=== PATIENT | male | born 1960 | race Caucasian/White ===

== ENCOUNTER 2021-10-01 16:46 | Emergency (ER) | payer BC, MEDICAID, OTHER ==
[2021-10-01] MEDS ORDERED: Sodium Chloride 0.9% 10 ML Syringe FLUSH PRN (17:26)
[2021-10-01] MEDS ORDERED: Sodium Chloride 0.9% 1,000 ML IV ONE (17:31)
[2021-10-01] MEDS ORDERED: Loperamide 2 MG Cap PO ONE (17:31)
[2021-10-01] MEDS ORDERED: Ondansetron 4 MG/2 ML SDV IVPUSH ONE (17:31)
--- NOTE | 2021-10-01 17:37 | EDM.PDOC ---
ED HPI GENERAL MEDICAL PROBLEM - General Chief Complaint: Gastrointestinal Problem Stated Complaint: WEAK,LOSS OF APPETITE Time Seen by Provider: 10/01/21 17:05 Source of Information: Reports: Patient, RN Notes Reviewed History Limitations: Reports: No Limitations - History of Present Illness INITIAL COMMENTS - FREE TEXT/NARRATIVE: Patient is a 61-year-old male who presents to the ER for the evaluation of his nausea/vomiting/diarrhea. States that this has been present since about Friday afternoon. Notes he has had multiple bouts of watery diarrhea since then, along with some nausea and vomiting. States he tried some Pedialyte yesterday but this did not sit well with him either. States he is not really ate a solid meal for the last few days. Denies any questionable foods that he could have ingested prior to this, and also is denying any sort of recent antibiotic therapy. States that he does not think that he has been around anyone has been sick, but again is not entirely sure. No fevers, he states that he felt some hot flashes and maybe some chills after vomiting and having diarrhea episodes. Denying any past medical issues. - Related Data Allergies Allergy/AdvReac Type Severity Reaction Status Date / Time No Known Allergies Allergy Verified 10/01/21 17:16 Home Meds: Home Meds Ondansetron [Zofran ODT] 4 mg PO Q8H PRN #15 tab.dis 10/01/21 [Rx] Past Medical History - Past Health History Medical/Surgical History: Denies Medical/Surgical History Social & Family History - Tobacco Use Tobacco Use Status *Q: Unknown Ever Used Tobacco ED ROS GENERAL - Review of Systems Review Of Systems: Comprehensive ROS is negative, except as noted in HPI. ED EXAM, GI/ABD - Physical Exam Exam: See Below Exam Limited By: No Limitations General Appearance: Alert, WD/WN, No Apparent Distress Respiratory/Chest: No Respiratory Distress, Lungs Clear, Normal Breath Sounds, No Accessory Muscle Use, Chest Non-Tender Cardiovascular: Normal Peripheral Pulses, Regular Rate, Rhythm, No Edema GI/Abdominal Exam: Soft, Non-Tender, No Distention, No Mass, Abnormal Bowel Sounds (hyperactive bowel tones) Extremities: Normal Inspection, Normal Capillary Refill Neurological: Alert, Oriented, Normal Cognition, No Motor/Sensory Deficits, Sensory/Motor Deficit Psychiatric: Normal Affect Skin Exam: Warm, Dry, Intact, Normal Color, No Rash Course - Vital Signs Last Recorded V/S: Last Vital Signs Temp 98.2 F 10/01/21 17:11 Pulse 98 10/01/21 17:11 Resp 18 10/01/21 17:11 BP 137/101 H 10/01/21 17:11 Pulse Ox 100 10/01/21 17:11 - Orders/Labs/Meds Orders: Active Orders 24 hr Category Date Time Status Peripheral IV Insertion Adult [OM.PC] Stat Oth 10/01/21 17:26 Ordered Labs: Laboratory Tests 10/01/21 10/01/21 10/01/21 Range/Units 17:40 17:50 17:50 WBC 5.78 (4.23-9.07) K/mm3 RBC 5.83 (4.63-6.08) M/mm3 Hgb 17.4 (13.7-17.5) gm/dl Hct 50.7 (40.1-51.0) % MCV 87.0 (79.0-92.2) fl MCH 29.8 (25.7-32.2) pg MCHC 34.3 (32.2-35.5) g/dl RDW Std Deviation 42.5 (35.1-43.9) fL Plt Count 152 L (163-337) K/mm3 MPV 11.4 (9.4-12.3) fl Neut % (Auto) 64.1 (34.0-67.9) % Lymph % (Auto) 25.3 (21.8-53.1) % Hood % (Auto) 10.2 (5.3-12.2) % Eos % (Auto) 0 L (0.8-7.0) Baso % (Auto) 0.2 (0.1-1.2) % Neut # (Auto) 3.71 (1.78-5.38) K/mm3 Lymph # (Auto) 1.46 (1.32-3.57) K/mm3 Hood # (Auto) 0.59 (0.30-0.82) K/mm3 Eos # (Auto) 0.00 L (0.04-0.54) K/mm3 Baso # (Auto) 0.01 (0.01-0.08) K/mm3 Sodium 137 (136-145) mEq/L Potassium 3.7 (3.5-5.1) mEq/L Chloride 102 (98-107) mEq/L Carbon Dioxide 19 L (21-32) mEq/L Anion Gap 19.7 H (5-15) BUN 10 (7-18) mg/dL Creatinine 1.1 (0.7-1.3) mg/dL Est Cr Clr Drug Dosing 71.41 mL/min Estimated GFR (MDRD) > 60 (>60) mL/min BUN/Creatinine Ratio 9.1 L (14-18) Glucose 106 H (70-99) mg/dL Calcium 8.6 (8.5-10.1) mg/dL Total Bilirubin 0.4 (0.2-1.0) mg/dL AST 17 (15-37) U/L ALT 25 (16-63) U/L Alkaline Phosphatase 77 (46-116) U/L C-Reactive Protein 0.9 (<1.0) mg/dL Total Protein 7.5 (6.4-8.2) g/dl Albumin 3.7 (3.4-5.0) g/dl Globulin 3.8 gm/dL Albumin/Globulin Ratio 1.0 (1-2) SARS-CoV-2 RNA (LESLIE) Positive H (NEGATIVE) Meds: Medications Discontinued Medications Generic Name Dose Route Start Last Admin Trade Name Freq PRN Reason Stop Dose Admin Sodium Chloride 1,000 mls @ 999 mls/hr 10/01/21 17:31 10/01/21 17:37 Normal Saline IV 10/01/21 18:31 999 mls/hr ONETIME ONE Administration Loperamide HCl 4 mg 10/01/21 17:31 10/01/21 17:37 Loperamide 2 Mg Cap PO 10/01/21 17:32 4 mg ONETIME ONE Administration Ondansetron HCl 4 mg 10/01/21 17:31 10/01/21 17:37 Ondansetron 4 Mg/2 Ml Sdv IVPUSH 10/01/21 17:32 4 mg ONETIME ONE Administration Sodium Chloride 10 ml 10/01/21 17:26 10/01/21 17:37 Sodium Chloride 0.9% 10 Ml Syringe FLUSH 10 ml ASDIRECTED PRN Administration Keep Vein Open - Re-Assessments/Exams Free Text/Narrative Re-Assessment/Exam: 10/01/21 17:38 Patient presents to the ER for the evaluation of his nausea/vomiting/diarrhea. We will go ahead and get IV started, give him some IV fluids, some Zofran, check for COVID-19 and get some basic labs along with a chest x-ray for initial management. 10/01/21 18:25 Was made aware by nursing staff, the patient does have a ride showing up at about 7 PM. His fluid should be done about then. Chest x-ray is suggestive for COVID-19 with mild increased density than the left mid and lower lung. White count is not elevated to suggest bacterial pneumonia. Due to the patient's multitude of other symptoms, is highly likely that he would be positive for COVID-19. We will send the patient home with a prescription for Zofran, and have him try conservative management at home. We can call him with his Covid results if he should have to leave by 7 PM. 10/01/21 18:48 Patient did receive a bag of fluids, and states that he is feeling better. I will see if he would like to wait around for his Covid results, or if he would rather have us call him with the results. 10/01/21 19:26 The patient's OVID-19 screen did come back positive. I did try calling once at this time, but he did not answer the phone and did not have a voicemail set up. I will try again to call him in about 1/2-hour. 10/01/21 20:27 I was able to reach the patient, and I did give him general recommendations regarding his COVID-19 illness. Patient verbalized understanding. Departure - Departure Time of Disposition: 18:53 Disposition: Home, Self-Care 01 Condition: Good Clinical Impression: Suspected COVID-19 virus infection - Discharge Information *PRESCRIPTION DRUG MONITORING PROGRAM REVIEWED*: No *COPY OF PRESCRIPTION DRUG MONITORING REPORT IN PATIENT [place]: No Prescriptions: Ondansetron [Zofran ODT] 4 mg PO Q8H PRN #15 tab.dis PRN Reason: Nausea Instructions: 10 Things You Can Do to Manage Your COVID-19 Symptoms at Home - CDC (06/15/2021), COVID-19: Quarantine vs. Isolation - [facility] (11/16/2020) Referrals: PCP,None [Primary Care Provider] - Forms: ED Department Discharge Additional Instructions: You were seen in the ER today for ongoing and/or worsening respiratory symptoms. Your chest x-ray showed minimal signs of viral pneumonia typical for COVID-19 at this time. Your oxygen levels were great at 96-97% on room air. Although your COVID-19 result did not come back before you had to leave the ER, it is highly suspect that you have COVID-19 we will call you with results. Even if the result should be negative, these tests are only about 60% accurate, and you should isolate yourself away from others, until you can be tested in a few days time to receive a second negative result to state that you were to be in fact negative for COVID-19. You were given some IV fluids at today's visit, some IV antinausea medications and some antidiarrheal medications. This seemed to help relieve some of your symptoms. You been given a prescription for Zofran, you may take 1 tablet dissolvable under your tongue every 8 hours as needed for ongoing nausea. This medication was electronically sent to the [facility] located near [facility]. Please try to increase your oral fluid intake, and eat multiple small meals throughout the day, to keep yourself healthy. You need to keep yourself nourished in order to fight off this disease. You can try a liquid diet like gatorade/powerade as well to get your electrolytes. You may take 500 mg Tylenol every hours 6 hours for pain/fever relief. Do not exceed 4000 mg Tylenol in a 24-hour time span. However, running a fever is your body's natural response to illness, and it allows the body to develop antibodies to disease, we are recommending trying to limit the use of Tylenol as much as possible to allow your body's natural immune response. You may try [id number] remedies like melatonin or Benadryl for nighttime purposes in order to make you try to go to sleep. These would be safe at least to try, while you having issues sleeping during this illness. Recommend you obtain a pulse oximeter and monitor your oxygen levels at home, you should place the monitor on your finger, and sit in a calm, quiet position for a few minutes and then record the number that is on the screen. If this consistently below 90% on room air without movement, this would be cause for concern to come back to the hospital for further management of your COVID-19 disease. Please follow all guidance set forth from [facility], regarding isolation purposes for your disease process. General isolation times are 10 days from when you started being symptomatic. Sepsis Event Note (ED) - Evaluation Sepsis Screening Result: No Definite Risk - Focused Exam Vital Signs: Vital Signs Temp Pulse Resp BP Pulse Ox 10/01/21 17:11 98.2 F 98 18 137/101 H 100 - My Orders Last 24 Hours: My Active Orders 10/01/21 17:26 Peripheral IV Insertion Adult [OM.PC] Stat - Assessment/Plan Last 24 Hours: My Active Orders 10/01/21 17:26 Peripheral IV Insertion Adult [OM.PC] Stat
--- NOTE | 2021-10-01 18:15 | CR ---
Chest: Portable view of the chest was obtained. Comparison: No prior study is available. Slight patchy increased density is seen within the left mid and lower lung. Lungs otherwise are clear. Heart size is normal. Slight tortuosity of the thoracic aorta is seen. Bony structures show nothing acute. Impression: 1. Mild increased density within the left mid and lower lung. Findings likely represent mild area of pneumonia. Please rule out COVID disease. Diagnostic code #3
== END 2021-10-01 19:00 | disposition home or self-care (01) ==
LOC: JD.ED 16:46
DX: U07.1 COVID-19 (principal)
CPT/HCPCS: 36415; 71045; 71045-26; 80053; 85025; 86140; 87804; 96374; 99284-25; A9270-GY; J2405; J7030; U0002